=== PATIENT | female | born 1950 | race Caucasian/White ===

== ENCOUNTER 2021-11-01 00:09 | Emergency (ER) | payer MEDICARE ==
[~2021-11-01] VITALS: Ht 162.6 cm; Wt 54.0 kg
[2021-11-01 00:18] VITALS: BP_SYST 115
[2021-11-01] MEDS ORDERED: DEXAMETHASONE SOD PHOSPHATE 10 MG/ML VIAL IVP ONE (01:30)
[2021-11-01] MEDS ORDERED: NACL 0.9% 1,000 ML IV ONE (01:30)
[2021-11-01 01:48] LABS: WHITE BLOOD COUNT (AUTO) 12.9 K/uL (4.8-10.8)
[2021-11-01 01:52] LABS: ANION GAP 8 (5-15); CALCIUM 8.8 mg/dL (8.4-11.0); CHLORIDE 99 mmol/L (98-107); CREATININE 0.94 mg/dL (0.55-1.30); GLUCOSE 108 mg/dL (70-99); POTASSIUM 4.3 mmol/L (3.5-5.1); SODIUM SERUM 136 mmol/L (136-145); UREA NITROGEN, BLOOD 21 mg/dL (8-21)
[2021-11-01 01:53] LABS: BASOPHILS % (AUTO) 0.3 % (0.0-2.0); EOSINOPHILS # (AUTO) 0.1 K/uL (0.0-0.4); EOSINOPHILS % (AUTO) 0.5 % (0.0-4.0); HEMATOCRIT 40.1 % (36-48); HEMOGLOBIN 13.4 g/dL (12.0-16.0); LYMPHOCYTES % (AUTO) 7.8 % (20.5-51.5); MEAN CORPUSCULAR HEMOGLOBIN 31 pg (27-31); MEAN CORPUSCULAR HGB CONC 34 % (32-36); MEAN CORPUSCULAR VOLUME 91 fL (79.0-98.0); MONOCYTES # (AUTO) 1.2 K/uL (0.0-1.0); MONOCYTES % (AUTO) 9.2 % (1.7-9.3); NEUTROPHILS # (AUTO) 10.6 K/uL (1.8-7.7); NEUTROPHILS % (AUTO) 82.2 % (40.0-70.0); PLATELET COUNT (AUTO) 246 K/uL (130-430); RED CELL DISTRIBUTION WIDTH 14.3 % (9.0-15.0)
[2021-11-01 01:54] LABS: GFR AFRICAN AMERICAN 76 mL/min (>90)
[2021-11-01 01:58] LABS: ALANINE AMINOTRANSFERASE 17 U/L (12-78); ALBUMIN 3.9 g/dL (3.4-4.8); ASPARTATE AMINOTRANSFERASE 18 U/L (10-37); TOTAL BILIRUBIN < 0.1 mg/dL (0.0-1.0)
[2021-11-01] MEDS ORDERED: CLINDAMYCIN 600 MG in D5W 50 ML IV ONE (03:15)
[2021-11-01] MEDS ORDERED: KETOROLAC TROMETHAMINE 15 MG VIAL IVP ONE (03:15)
[2021-11-01] MEDS ORDERED: CHLORHEXIDINE GLUCONATE 15 ML/DOSE, 480 ML MM ONE (03:15)
[2021-11-01] MEDS ORDERED: CHLO473M5 PO (03:27)
[2021-11-01] MEDS ORDERED: AUG875 PO (03:27)
[2021-11-01] MEDS ORDERED: AMOXICILLIN/CLAVULANATE POTASSIUM 875 MG TABLET PO ONE (03:30)
[2021-11-01] MEDS ORDERED: IBUP-1969 PO (03:31)
[2021-11-01 03:46] VITALS: BP_SYST 144
[2021-11-01 04:11] LABS: BILIRUBIN,URINE NEGATIVE (NEGATIVE); CLARITY/URINE CLEAR (CLEAR); COLOR,URINE YELLOW (YELLOW); GLUCOSE,URINE NEGATIVE (NEGATIVE); KETONES,URINE NEGATIVE (NEGATIVE); LEUKOCYTE ESTERASE ,URINE TRACE (NEGATIVE); NITRITE, URINE NEGATIVE (NEGATIVE); PROTEIN URINE NEGATIVE (NEGATIVE); UROBILINOGEN,URINE 0.2 (0.2-1.0)
[2021-11-01 04:13] LABS: BLOOD, URINE TRACE (NEGATIVE)
[2021-11-01 04:48] LABS: BACTERIA,URINE FEW /HPF (None Seen); WBC,URINE 20-50 /HPF (0-3)
[2021-11-01 04:49] LABS: MUCUS,URINE None Seen /LPF (None Seen)
== END 2021-11-01 03:45 | disposition home or self-care (01) ==
LOC: SED 00:09
DX: K04.7 Periapical abscess without sinus (principal); K12.1 Other forms of stomatitis; C79.9 Secondary malignant neoplasm of unspecified site; I10 Essential (primary) hypertension; F17.210 Nicotine dependence, cigarettes, uncomplicated
CPT/HCPCS: 36415; 70491; 76376; 80053; 81000; 83605; 85025; 87040; 87086; 96365; 96375; 99285; J1100; J1885; Q9967

== ENCOUNTER 2022-04-15 06:19 | Emergency (ER) | payer MEDICARE, OTHER ==
[~2022-04-15] VITALS: Ht 162.6 cm; Wt 45.4 kg
[~2022-04-15 06:19] MED LIST: AUG875 PO; CHLO473M5 PO; IBUP-1969 PO
[2022-04-15 06:28] VITALS: BP_SYST 93
--- NOTE | 2022-04-15 06:32 | NUR ---
PT IS A 71 Y.O F BIB SON C/O R NARE NOSEBLEED THAT STARTED YESTERDAY, ON & OFF BLEEDING. MIN BLEEDING AT THE MOMENT. GAUZE & COLD PACK PROVIDED. ALLERGIC TO PCN. HX OF NECK CA & DEMENTIA, NO MEDS FR HOME. AMBULATORY W/ STEADY GAIT. SAFE & HAZARD FREE ENVIRONMENT PROVIDED. PLACED IN BED8, GOWN PROVIDED. REPORT GIVEN TO DOROTEO NOONAN.
--- NOTE | 2022-04-15 06:52 | NUR ---
DA Bustillo at bedside.
[2022-04-15] MEDS ORDERED: OXYMETAZOLINE HCL 0.05% NASAL SPRAY NS ONE (07:00)
--- NOTE | 2022-04-15 07:00 | NUR ---
Patient resting comfortably in bed with safety procautions in place. Nad noted at this time.
--- NOTE | 2022-04-15 07:20 | NUR ---
Report given to BOLIVAR Thomson to assume care of patient at this time.
--- NOTE | 2022-04-15 07:40 | NUR ---
# 20 gauge angiocath placed to RAC. Use of asceptic technique. Opsite placed over site. Blood return noted. Blood for lab drawn from site. Flushed with 10 cc of normal saline. No evidence of infiltration noted. Patient tolerated well.
--- NOTE | 2022-04-15 07:45 | NUR ---
Phleb. bedside collecting lab specimen from left arm.
--- NOTE | 2022-04-15 07:51 | NUR ---
EKG performed at by Tre. Physician given copy of EKG for review.
--- NOTE | 2022-04-15 07:58 | NUR ---
Pt resting comfortably in bed with son bedside. Nose bleed is controlled with gauze no saturation of gauze occuring. pt HOB Fowlers position. BP 115/74 dips to 90/58 notified .
[2022-04-15] MEDS ORDERED: NACL 0.9% 1,000 ML IV ONE (08:00)
--- NOTE | 2022-04-15 08:03 | NUR ---
Medicated per MD orders. IVF infusing with no s/s of infiltration at this time. Will cont to monitor
[2022-04-15 08:12] LABS: HEMATOCRIT 34.4 % (36-48); HEMOGLOBIN 11.8 g/dL (12.0-16.0); MEAN CORPUSCULAR HEMOGLOBIN 30 pg (27-31); MEAN CORPUSCULAR HGB CONC 34 % (32-36); MEAN CORPUSCULAR VOLUME 88 fL (79.0-98.0); PLATELET COUNT (AUTO) 221 K/uL (130-430); RED CELL DISTRIBUTION WIDTH 14.8 % (9.0-15.0); WHITE BLOOD COUNT (AUTO) 5.2 K/uL (4.8-10.8)
[2022-04-15 08:35] LABS: PROTHROMBIN TIME 10.7 SECS (9.5-12.5)
--- NOTE | 2022-04-15 08:56 | NUR ---
pt eating breakfast without complaints.
--- NOTE | 2022-04-15 09:03 | NUR ---
Pt son no longer bedside contact info. [phone] Ed.
--- NOTE | 2022-04-15 09:20 | NUR ---
Contacted Ed (pt son) to make aware of transfer to ER. MD Bustillo consultation with MD Tamayo concluded with necessity to transfer for further resources of an ENT evaluation. ER to ER transfer pending.
[2022-04-15 09:23] LABS: CALCIUM 8.7 mg/dL (8.4-11.0); CREATININE 0.86 mg/dL (0.55-1.30); POTASSIUM 4.3 mmol/L (3.5-5.1)
[2022-04-15 09:28] LABS: TOTAL BILIRUBIN 0.5 mg/dL (0.0-1.0)
--- NOTE | 2022-04-15 09:40 | NUR ---
URINE SENT TO LAB.
--- NOTE | 2022-04-15 09:43 | NUR ---
covid specimen collection from left nares Tre MORALES walked over to lab.
[2022-04-15 09:57] LABS: BILIRUBIN,URINE NEGATIVE (NEGATIVE); BLOOD, URINE NEGATIVE (NEGATIVE); CLARITY/URINE CLEAR (CLEAR); COLOR,URINE YELLOW (YELLOW); GLUCOSE,URINE NEGATIVE (NEGATIVE); KETONES,URINE NEGATIVE (NEGATIVE); LEUKOCYTE ESTERASE ,URINE NEGATIVE (NEGATIVE); NITRITE, URINE NEGATIVE (NEGATIVE); PROTEIN URINE NEGATIVE (NEGATIVE); UROBILINOGEN,URINE 0.2 (0.2-1.0)
--- NOTE | 2022-04-15 10:28 | NUR ---
Report given to Gypsy SADLER transfers/medical education coordinator of [facility]. Son Ed informed and intends to ride along with Ambulance. ETA 1100.
[2022-04-15 12:06] VITALS: BP_SYST 121
== END 2022-04-15 12:06 | disposition home or self-care (01) ==
LOC: SED 06:19
DX: R04.0 Epistaxis (principal); I95.9 Hypotension, unspecified; Z88.0 Allergy status to penicillin; Z85.89 Personal history of malignant neoplasm of other organs and systems; Z86.59 Personal history of other mental and behavioral disorders; Z79.899 Other long term (current) drug therapy; Z20.822 Contact with and (suspected) exposure to COVID-19
CPT/HCPCS: 99291; 96360; 96361; 87426; 80053; 85014; 85049; 85610; 86886; 86900; 86901; 87040; 84484; 85048; 36415; 93005; 71045; 83051; 83605; 81003; J7030

== ENCOUNTER 2022-05-16 21:20 | Emergency (ER) | payer MEDICARE ==
[~2022-05-16] VITALS: Ht 157.5 cm; Wt 46.3 kg
[2022-05-17 00:08] VITALS: BP_SYST 122
== END 2022-05-16 22:12 | disposition left against medical advice (07) ==
LOC: SED 21:20
DX: Z48.02 Encounter for removal of sutures (principal); Z53.21 Procedure and treatment not carried out due to patient leaving prior to being seen by health care provider